=== PATIENT | male | born 1960 ===

== ENCOUNTER 2017-08-07 19:51 | Emergency (ER) | payer BC ==
--- NOTE | 2017-08-07 20:45 | UC ---
Sofia Lord Rebecca, scribed for Amanda Vance MD on 08/07/17 at 2021 . General HPI - HPI Summary HPI Summary: Pt is a 56 y/o M who presents to [facility] accompanied by his c/o epistaxis since 229. He woke up at 0230, spit out a large blood clot and has been experiencing a nose bleed consistently since then. Occasionally, he will have clots come out of his nose, particularly out of the left nostril. Packed both nostrils [employer], last changing it about an hour ago. Additionally reports he can occasionally feel blood in the back of his throat. Notes intermittent HAs, but not currently. Denies lightheadedness, abdominal pain, N/V, vision changes. Takes iron pills - he bleeds easily. PMHx HTN - used to be on medication but was taken off multiple years ago due to side effects. 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 Does not have a PCP and has not consumed EtOH tonight. Pt's not taking medications - History of Current Complaint Chief Complaint: UCGeneralIllness Stated Complaint: NOSE BLEED Time Seen by Provider: 08/07/17 20:15 Hx Obtained From: Patient Onset/Duration: Lasting Hours - Since 229, Still Present Timing: Constant Current Severity: None Pain Intensity: 0 Pain Location at: NEGATIVE Associated Signs & Symptoms: Positive: Other - Epistaxis. 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 Lives: With Family Alcohol Use: Daily Substance Use Type: None Smoking Status (MU): Heavy Every Day Tobacco Smoker Type: Cigarettes Household Exposure Type: Cigarettes Review of Systems Constitutional: Negative Skin: Negative Eyes: Negative ENT: Epistaxis, Other - Blood down his throat Respiratory: Negative Cardiovascular: Negative Gastrointestinal: Negative Genitourinary: Negative Motor: Negative Neurovascular: Negative Musculoskeletal: Negative Neurological: Headache - Intermittent - not presently Psychological: Negative All Other Systems Reviewed And Are Negative: Yes - Comments Additional Review of Systems Comments: NEGATIVE: Lightheadedness, abdominal pain, N/V, vision changes Physical Exam - Summary Physical Exam Summary: Vital Signs Reviewed: Yes A+Ox3, no distress Eyes: Conjunctiva Clear, RASHAD. EOM intact and full ENT: Hearing grossly normal TM x 2 clear, mmoist, uvula midline, no exudate, no erythema Pt wtih packing in nares. Pt started to bleed through left packing. Packing removed - large clot. unable to identify site of bleed. rhinorocket placed. Pt tolerated well Neck: Positive: Supple Respiratory: Positive: No respiratory distress, No accessory muscle use + CTA throughout no w/r Cardiovascular: RRR nl s1, s2 no m/r CBT <2 sec abd soft + BS nt/nd no guarding, no distension Musculoskeletal Exam: SMITH x 4 without difficulty Strength Intact, ROM Intact Neurological: Positive: Alert, + sensation throughout Psychological: Positive: Normal Response To Family Skin: Positive: no rash, no ecchymosis Triage Information Reviewed: Yes Vital Signs: Initial Vital Signs Temp 99.5 F 08/07/17 19:55 Pulse 97 08/07/17 19:55 Resp 16 08/07/17 19:55 BP 184/117 08/07/17 19:55 Pulse Ox 98 08/07/17 19:55 Re-Evaluation - Re-Evaluation First Eval Re-Evaluation Time: 20:32 Comment: Packed the left nostril. Course/Dx - Course Course Of Treatment: Pt here with persist epistaxis x 15 hours controlled with left nares packing. pt with significant hypertension - previously on meds - stipped taking. no pcp. intermittnet CHEN. d/w pt and at length. concern for complex nature of pt and no PCP for f/u. recommend to ED by POV for further eval. pt comfotable and brando greeent wiht plan. bleeding controlled with packing. to drive. spoke with Dr. Gill - accepting pt - Differential Dx - Multi-Symptom Provider Diagnoses: epistaxsis. hypertensive urgency - Physician Notifications Discussed Patient Care With: Zheng Gill Time Discussed With Above Provider: 20:40 Instructed by Provider To: Other - Discussed that the pt will be going to the E.D. by private vehicle. Discharge - Sign-Out/Discharge Documenting (check all that apply): Discharge/Admit/Transfer - Discharge - Discharge Plan Condition: Stable Disposition: HOME Patient Education Materials: Nosebleed (ED), Hypertensive Crisis (ED) Referrals: No Primary Care Phys,NOPCP [Primary Care Provider] - Additional Instructions: The doctor that evaluated you recommends you go directly to the emergency department for further evaluation and treatment If you start to bleed uncontrolled, it is recommended you hold steady, strong pressure against your nose and lean forward. If you start to feel lightheaded, have chest pain or any other concerns it is recommended you bone char puller and call 911 - Billing Disposition and Condition Condition: STABLE Disposition: Home The documentation as recorded by the Sofia martell Rebecca accurately reflects the service I personally performed and the decisions made by me, Amanda Vance MD.
[2017-08-07 20:55] VITALS: BP 180/106
== END 2017-08-07 20:55 | disposition home or self-care (01) ==
LOC: UCEAST 19:51
DX: R04.0 Epistaxis (principal); I16.0 Hypertensive urgency; I10 Essential (primary) hypertension; F17.210 Nicotine dependence, cigarettes, uncomplicated
CPT/HCPCS: 30901; 99203; G0463

== ENCOUNTER 2017-08-07 21:05 | Emergency (ER) | payer BC ==
[2017-08-07] MEDS ORDERED: Labetalol IV* 5 MG/ML 20 ML VIAL IV PUSH ONE (21:33)
[2017-08-07 21:46] LABS: ABS Basophils 0.1 10^3/ul (0-0.2); ABS Eosinophils 0.1 10^3/ul (0-0.6); ABS Lymphocytes 1.1 10^3/ul (1.0-4.8); ABS Monocytes 1.2 10^3/ul (0-0.8); ABS Neutrophils 8.1 10^3/ul (1.5-7.7); ABS Nucleated RBC 0 10^3/ul; Eosinophil % 1.3 % (0-6); Hematocrit 41 % (42-52); Hemoglobin 13.9 g/dl (14.0-18.0); Lymphocyte % 10.3 % (25-47); Mean Corpuscular HGB Conc 34 g/dl (31-36); Mean Corpuscular Hemoglobin 34 pg (27-31); Mean Corpuscular Volume 100 fL (80-94); Mean Platelet Volume 7.3 um3 (7.4-10.4); Nucleated Red Blood Cells % 0; Platelet Count 300 10^3/ul (150-450); Red Blood Count 4.11 10^6/ul (4.00-5.40); Red Cell Distribution Width 13 % (10.5-15); White Blood Count 10.7 10^3/ul (3.5-10.8)
[2017-08-07 22:18] LABS: EGFR Non-African American 115.2 (>60)
[2017-08-07 23:01] VITALS: BP 141/94
--- NOTE | 2017-08-07 23:05 | ED ---
Samantha Lord Elizabeth, scribed for Mary Ellen Mayo MD on 08/07/17 at 2119 . Hypertension - HPI Summary HPI Summary: This patient is a 56 year old M presenting to [facility] upon referral from [facility] with a chief complaint of elevated blood pressure since 02:00 this morning. The patient was seen at [facility] for epistaxis since 02:00 this morning and they placed a rhino-rocket. The patient rates the pain 0/10 in severity. Symptoms aggravated by nothing. Symptoms alleviated by nothing. Patient reports hx of HTN but reports that he has not taken any HTN medications in 5-6 years since they made him feel dizzy. Patient denies CHEN. - History of Current Complaint Chief Complaint: EDHypertension Stated Complaint: HIGH BLOOD PRESSURE/NOSE BLEED SINCE 2AM Hx Obtained From: Patient, Medical Records Onset/Duration: Started Hours Ago, Atraumatic, Still Present Timing: Constant, Lasting Hours Aggravating Factor(s): Nothing Alleviating Factor(s): Nothing Associated Signs & Symptoms: Other: - epistaxis - Allergies/Home Medications Allergies/Adverse Reactions: Allergies Allergy/AdvReac Type Severity Reaction Status Date / Time No Known Allergies Allergy Verified 08/07/17 21:11 Home Medications: Home Medications NK [No Home Medications Reported] 08/07/17 [History Confirmed 08/07/17] PMH/Surg Hx/FS Hx/Imm Hx Cardiovascular History: Reports: Hx Hypertension Opthamlomology History: Denies: Hx Legally Blind EENT History: Denies: Hx Deafness Infectious Disease History: No Infectious Disease History: Denies: Traveled Outside the [place] in Last 30 Days - Family History Known Family History: Positive: Hypertension - Social History Alcohol Use: Daily Substance Use Type: Reports: None Smoking Status (MU): Heavy Every Day Tobacco Smoker Type: Cigarettes Review of Systems Negative: Fever Positive: Epistaxis Cardiovascular: Other - elevated bp Negative: Headache All Other Systems Reviewed And Are Negative: Yes Physical Exam - Summary Physical Exam Summary: VITAL SIGNS: Reviewed. GENERAL: ~Patient is a well-developed and nourished MALE who is lying comfortable in the stretcher. Patient is not in any acute respiratory distress. HEAD AND FACE: No signs of trauma. No ecchymosis, hematomas or skull depressions. No sinus tenderness. NOSE: Packing in right nostril which looks bloody with no active bleeding. Left nostril bloody with no active bleeding EYES: PERRLA, EOMI x 2, No injected conjunctiva, no nystagmus. EARS: Hearing grossly intact. Ear canals and tympanic membranes are within normal limits. MOUTH: Oropharynx within normal limits. NECK: Supple, trachea is midline, no adenopathy, no JVD, no carotid bruit, no c- spine tenderness, neck with full ROM. CHEST: Symmetric, no tenderness at palpation LUNGS: Clear to auscultation bilaterally. No wheezing or crackles. CVS: Regular rate and rhythm, S1 and S2 present, no murmurs or gallops appreciated. ABDOMEN: Soft, non-tender. No signs of distention. No rebound no guarding, and no masses palpated. Bowel sounds are normal. EXTREMITIES: FROM in all major joints, no edema, no cyanosis or clubbing. NEURO: Alert and oriented x 3. No acute neurological deficits. Speech is normal and follows commands. SKIN: Dry and warm Triage Information Reviewed: Yes Vital Signs On Initial Exam: Initial Vitals Temp Pulse Resp BP Pulse Ox 98.8 F 87 16 176/107 95 08/07/17 21:07 08/07/17 21:07 08/07/17 21:07 08/07/17 21:07 08/07/17 21:07 Vital Signs Reviewed: Yes Diagnostics - Vital Signs Vital Signs Temp Pulse Resp BP Pulse Ox 08/07/17 21:07 98.8 F 87 16 176/107 95 - Laboratory Result Diagrams: 08/07/17 21:37 08/07/17 21:37 Lab Statement: Any lab studies that have been ordered have been reviewed, and results considered in the medical decision making process. - EKG 21:37 Cardiac Rate: NL - at 82 bpm EKG Rhythm: Sinus Rhythm EKG Interpretation: sinus rhythm at 82 bpm, left anterior fasicular block Hypertension Course/Dx - Course Course Of Treatment: This patient is a 56 y/o M with PMHx of unmedicated HTN reports elevated blood pressure and epistaxis since 02:00 this morning. The patient received a packing in his left nostril at [facility]. Physical exam reveals packing in right nostril which looks bloody with no active bleeding and Left nostril bloody with no active bleeding. Imaging and lab results reviewed with patient. In the ED course the patient was given Trandate. Patient will be discharged home with dx of hypertension and epistaxis and follow up from primary care physician and Dr. Araujo, ENT, in 1-2 days. The patient is agreeable with this plan. - Diagnoses Provider Diagnoses: Epistaxis, Hypertension Discharge - Sign-Out/Discharge Documenting (check all that apply): Discharge/Admit/Transfer - Discharge Plan Condition: Stable Disposition: HOME Discharge Disposition Comment: discharge home Patient Education Materials: Nosebleed (ED), Hypertension (ED) Referrals: [facility] [Outside] - 2 Days (follow up with primary care physician in 1-2 days) Jun Araujo MD [Medical Doctor] - 2 Days (Follow up with ENT specialist in 1-2 days) Additional Instructions: Follow up with primary care physician in 1-2 days. Follow up with Dr. Araujo , ENT specialist, in 1-2 days. Return to the emergency department with any new or worsening symptoms. The documentation as recorded by the Samantha martell Elizabeth accurately reflects the service I personally performed and the decisions made by , Mary Ellen Mayo MD.
== END 2017-08-07 22:59 | disposition home or self-care (01) ==
LOC: ED 21:05
DX: I10 Essential (primary) hypertension (principal); R04.0 Epistaxis; F17.210 Nicotine dependence, cigarettes, uncomplicated
CPT/HCPCS: 36415; 80053; 85025; 93005; 96374; 99283